=== PATIENT | male | born 1990 | race Caucasian/White ===

== ENCOUNTER 2021-05-02 13:31 | Emergency (ER) | payer OTHER ==
[~2021-05-02] VITALS: Ht 175.3 cm; Wt 81.6 kg
[2021-05-02 13:43] VITALS: BP 158/93
--- NOTE | 2021-05-02 14:43 | NUR ---
DR SIMS ATTEMPTED TO EVALUATE PT, NO ANSWER IN LOBBY/TENT
--- NOTE | 2021-05-02 15:20 | NUR ---
PATIENT LEFT WITHOUT BEING SEEN BY DR. ISMS. NO FURTHER CARE PROVIDED FOR PATIENT.
== END 2021-05-02 15:20 | disposition left against medical advice (07) ==
LOC: MED 13:31
DX: R05.9 Cough, unspecified (principal); R09.89 Other specified symptoms and signs involving the circulatory and respiratory systems; R06.02 Shortness of breath; Z53.21 Procedure and treatment not carried out due to patient leaving prior to being seen by health care provider